=== PATIENT | female | born 1990 ===

== ENCOUNTER → 2017-06-28 | Emergency (ER) | payer OTHER ==
[~2017-06-28] VITALS: Ht 157.5 cm; Wt 64.4 kg
[~2017-06-28] MED LIST: PRENATAL + DHA1 EAC1
== END | disposition home or self-care (01) ==
LOC: ER 16:50
DX: O26.892 Other specified pregnancy related conditions, second trimester (principal); R10.2 Pelvic and perineal pain; Z34.01 Encounter for supervision of normal first pregnancy, first trimester